=== PATIENT | female | born 1970 | race Caucasian/White ===

== ENCOUNTER 2021-06-03 09:18 | Outpatient (CLI) | payer BC | END 2021-06-03 09:19 | disposition home or self-care (01) | LOC: CSHMAMMO 09:18 | PROVIDERS: ATTEND Obstetrics & Gynecology | DX: N64.52 Nipple discharge (principal) | CPT/HCPCS: 77066; G0279 ==

== ENCOUNTER 2022-06-26 12:02 | Outpatient (CLI) | payer BC | END 2022-06-26 12:03 | disposition home or self-care (01) | LOC: CSHMAMMO 12:02 | PROVIDERS: ATTEND Obstetrics & Gynecology | DX: Z12.31 Encounter for screening mammogram for malignant neoplasm of breast (principal) | CPT/HCPCS: 77063; 77067 ==

== ENCOUNTER 2023-07-31 10:57 | Outpatient (CLI) | payer BC | END 2023-07-31 10:58 | disposition home or self-care (01) | LOC: CSHMAMMO 10:57 | PROVIDERS: ATTEND Obstetrics & Gynecology | DX: Z12.31 Encounter for screening mammogram for malignant neoplasm of breast (principal) | CPT/HCPCS: 77063; 77067 ==

== ENCOUNTER 2025-03-24 07:56 | Outpatient (CLI) | payer BC ==
[2025-03-24] MEDS ORDERED: Iopamidol 300 61% 100 ML VIAL FS ONE (11:34)
== END 2025-03-24 07:57 | disposition home or self-care (01) ==
LOC: CSHCT 07:56
PROVIDERS: ATTEND Internal Medicine Cardiovascular Disease
DX: R06.02 Shortness of breath (principal); M47.814 Spondylosis without myelopathy or radiculopathy, thoracic region; M47.815 Spondylosis without myelopathy or radiculopathy, thoracolumbar region
CPT/HCPCS: 71260; Q9967